=== PATIENT | female | born 1995 | race Caucasian/White ===

== ENCOUNTER 2019-12-17 06:55 | Inpatient (IN) ==
[2019-12-17] MEDS ORDERED: ceFAZolin 2000MG 2,000 MG/15 ML SYR IV ONE (09:05)
--- NOTE | 2019-12-17 09:07 | Obstetrical Progress Note ---
Date of Service December 17, 2019 Assessment & Plan Admission and Anticipated Discharge Date Admission Date: December 17, 2019 Subjective met pt and spouse bedside sono: breech FHR; CAT1 will proceed with c/sec Results & Data ([facility]) Vital Signs (Past 12 Hours) Vital Signs Temp Pulse Pulse Resp BP BP 12/17/19 07:46 36.7 C 92 H 20 118/63 12/17/19 07:38 36.7 C 92 H 20 118/63 12/17/19 07:01 92 H 118/63
--- NOTE | 2019-12-17 09:07 | History & Physical Bridge Note ---
Date of Service December 17, 2019 History & Physical Bridge Note I have examined the patient, reviewed the History & Physical and in the interval since the performance of the History & Physical I have noted the following changes of clinical significance: no changes noted
[2019-12-17] MEDS ORDERED: CITRIC ACID/SODIUM CITRATE 15 ML UDC PO ONE (09:20)
[2019-12-17] MEDS ORDERED: LACTATED RINGER'S 250 ML IV ONE (09:28)
[2019-12-17] MEDS ORDERED: LACTATED RINGER'S 1,000 ML IV SCH ×2 (09:30→12:00)
[2019-12-17 09:34] LABS: Basophils # (auto) 0.03 K/uL (0-0.2); Basophils % (auto) 0.3 %; Eosinophils # (auto) 0.17 K/uL (0-0.5); Eosinophils % (auto) 1.5 %; Hematocrit (blood only) 35.1 % (37-47); Hemoglobin 11.8 g/dL (12.0-16.0); Immature Granulocytes # (auto) 0.05 K/uL (0.00-0.02); Immature Granulocytes % (auto) 0.5 %; Lymphocytes # (auto) 1.93 K/uL (1.2-3.4); Lymphocytes % (auto) 17.5 %; Mean Corpuscular Hemoglobin 31.2 pg (25-34); Mean Corpuscular Volume 92.9 fL (80-100); Mean Platelet Volume 11.9 fL (7.4-10.4); Monocytes # (auto) 0.73 K/uL (0.11-0.59); Monocytes % (auto) 6.6 %; Neutrophils # (auto) 8.15 K/uL (1.4-6.5); Neutrophils % (auto) 73.6 %; Platelet Count 191 K/uL (130-400); RDW Coefficient of Variation 14.8 % (11.5-14.5); RDW Standard Deviation 49.6 fL (36.4-46.3); Red Blood Count 3.78 M/uL (4.2-5.4); White Blood Count 11.06 K/uL (4.8-10.8)
[2019-12-17] MEDS ORDERED: LACTATED RINGER'S 1,000 ML IV ONE (09:36)
[2019-12-17 09:40] LABS: Mean Corpuscular Hgb Conc 33.6 g/dL (32-36)
[2019-12-17] MEDS ORDERED: MoRPHine SULFATE PF 1 MG/ML 10 ML AMP/VIAL ONE (09:58)
--- NOTE | 2019-12-17 10:07 | Anesthesiology Consultation ---
Date of Service December 17, 2019 Assessment & Plan Chart Review Chart Review: Acceptable Risk for Surgery Consults Requested none History Surgery Operation Date: 12/17/19 08:50 Proposed Procedures p Section in LD - Kael Galeas MD Height/Weight Height: 5 ft 7 in Weight: 73.21 kg Allergies Allergy/AdvReac Type Severity Reaction Status Date / Time No Known Allergies Allergy Verified 12/07/19 13:36 Medications Home Medications Medication Instructions Recorded Confirmed Last Taken ferrous sulfate 325 mg PO QAM 12/07/19 12/17/19 12/15/19 22:00 [id number] 1 tab PO QAM 12/07/19 12/17/19 12/15/19 22:00 [] Past Medical History Medical History No known health problems Past Surgical History Surgical History No history of previous surgery Social History Smoking Status: Former smoker Do You Dip or Chew Tobacco: No Smoking End Date: quit beginning of 10-05-19 Hx Alcohol Use: No Hx Substance Use: No substance use type: does not use Physical Exam Vital Signs Last Vital Signs Temp 36.9 C 12/17/19 09:57 Pulse 109 H 12/17/19 09:49 Resp 20 12/17/19 09:57 BP 124/85 12/17/19 09:49 Testing Laboratory Results 12/17/19 07:10 Blood Type O Positive 12/17/19 07:10 Antibody Screen NEGATIVE 12/17/19 07:10
[2019-12-17] MEDS ORDERED: NALOXONE HCL 1 MG in SODIUM CHLORIDE 0.9% 1000ML 1,000 ML IV PRN (10:09)
[2019-12-17] MEDS ORDERED: MoRPHine SULFATE PF 1 MG/ML 10 ML AMP/VIAL INT SPINAL ONE (10:09)
[2019-12-17] MEDS ORDERED: NALOXONE HCL 0.4 MG/1 ML VIAL/CARP IV PRN (10:09)
[2019-12-17] MEDS ORDERED: METOCLOPRAMIDE HCL 10 MG in SODIUM CHLORIDE 0.9% 50 ML IV PRN (10:09)
[2019-12-17] MEDS ORDERED: diphenhydrAMINE 50 MG/ML VIAL IV PRN (10:09)
[2019-12-17] MEDS ORDERED: LACTATED RINGER'S 500 ML IV PRN (10:09)
[2019-12-17] MEDS ORDERED: PROMETHAZINE HCL 25 MG in SODIUM CHLORIDE 0.9% 50 ML IV PRN (10:09)
[2019-12-17] MEDS ORDERED: NALOXONE HCL 0.08 MG in SYRINGE 1.8 ML IV PRN (10:09)
[2019-12-17] MEDS ORDERED: MoRPHine SULFATE 2 MG/ML CARP IV PRN (10:09)
[2019-12-17] MEDS ORDERED: ePHEDrine sulfate 50 MG/ML AMP IV PRN (10:09)
[2019-12-17] MEDS ORDERED: HYDROmorphone INJ 0.5 MG/0.5 ML SYR IV PRN (10:09)
[2019-12-17] MEDS ORDERED: ONDANSETRON INJ 2 MG/ML 2 ML VIAL IV PRN (10:09)
[2019-12-17] MEDS ORDERED: SODIUM CHLORIDE 0.9% 1000ML 1,000 ML IV SCH (10:15)
[2019-12-17] MEDS ORDERED: DC INTRASPINAL MORPHINE SCH (10:15)
[2019-12-17] MEDS ORDERED: NO NARCOTICS OR SEDATIVES SCH (10:15)
[2019-12-17] MEDS ORDERED: OXYTOCIN 10 UNITS/ML VIAL ONE (10:54)
[2019-12-17] MEDS ORDERED: METHYLERGONOVINE MALEATE 0.2 MG/ML AMP ONE (11:04)
[2019-12-17] MEDS ORDERED: PHENYLEPHRINE 100MCG/ML 5ML SYR ONE (11:04)
[2019-12-17] MEDS ORDERED: ePHEDrine sulfate 50 MG/ML AMP ONE (11:10)
[2019-12-17] MEDS ORDERED: miSOPROStoL 200 MCG TAB ONE (11:38)
[2019-12-17] MEDS ORDERED: MAGNESIUM HYDROXIDE SUSP 30 ML UDC PO PRN (11:56)
[2019-12-17] MEDS ORDERED: DIPHTHERIA/TETANUS/PERTUSSIS 0.5 ML SYR/VIAL IM ONE (11:56)
[2019-12-17] MEDS ORDERED: HYDROCORTISONE ACETATE 25 MG SUPP PR PRN (11:56)
[2019-12-17] MEDS ORDERED: BENZOCAINE 20% AER SPR 82.5 GM CAN EXT PRN (11:56)
[2019-12-17] MEDS ORDERED: SENNA 8.6 MG TAB PO PRN (11:56)
[2019-12-17] MEDS ORDERED: SUPERCREAM 0.870% 15 GM JAR EXT PRN (11:56)
--- NOTE | 2019-12-17 11:56 | Post Operative Brief Note ---
Immediate Post Op Note v1 Date of Surgery December 17, 2019 Pre & Post Diagnosis Operation Date: 12/17/19 08:50 Pre-Op Diagnosis: Term intrauterine . Breech presentation. Post-Op Diagnosis: same I identified the patient and participated in the time-out.: Yes Procedure Operation Date: 12/17/19 08:50 Actual Procedures p Low transverse section with of live female child at 1050 - Kael Galeas MD Surgeon Kael Galeas MD [employer] cory montoya Estimated Blood Loss 600 Findings Consistent with Post-Op Diagnosis Drains Secobar Catheter
--- NOTE | 2019-12-17 12:20 | Operative Report (OR) ---
DATE OF OPERATION: 12/17/2019 INDICATION FOR SURGERY: This is a 24-year-old G1, P0, at term with biju breech presentation. PREOPERATIVE DIAGNOSES: 1. at term. 2. Biju breech presentation. 3. The patient declined external version. POSTOPERATIVE DIAGNOSES: 1. at term. 2. Biju breech presentation. 3. The patient declined external version. PROCEDURE: Primary section. SURGEON: Kael Galeas MD. ANESTHESIA: Spinal. ATTENDING FOR ANESTHESIA: Curry Chavarria MD. RACE RELATIONS ADVISER FOR SURGERY: TODD Estrada. ESTIMATED BLOOD LOSS: 600 mL. INTRAVENOUS FLUIDS: 1600 mL. URINE OUTPUT: 200 mL of clear urine at the end of the procedure. FINDINGS: Live infant in biju breech presentation. Uterus, ovaries and adnexas otherwise appeared grossly normal. COMPLICATIONS: None. DRAINS: Escobar catheter. PATHOLOGY: Placenta. DESCRIPTION OF PROCEDURE: The patient was taken to the operating room where she was prepped and draped in normal sterile fashion. Timeout was called. A Pfannenstiel incision was made with a scalpel and carried down to the fascia. Fascia was incised in the midline and extended laterally on both sides. Fascia was sharply dissected off the rectus abdominus muscle. Peritoneum was identified and entered sharply. Once inside the abdomen, findings were as dictated above. An Joseph retractor was placed for retraction. Vesicouterine peritoneum was sharply dissected off the lower segment of the uterus. A low transverse incision was made in the uterus with a scalpel and extended laterally on both sides. Infant was delivered using breech maneuvers. Buttocks was delivered first followed by the legs, torso, arms, and the infant's head. Cord was clamped and cut after 30 seconds and handed over to the pediatric team. Details of the 's information is in the pediatric record. Cord blood and cord gas were obtained. Placenta was manually removed. Uterus was exteriorized and cleared of all clots and debris. Uterus was closed in 2 layers using Vicryl stitch. There was good hemostasis post-closure. Copious amount of irrigation was used to irrigate the abdomen. The uterus was returned into the abdominal cavity. The Joseph retractor at this time was removed. Once again, hemostasis was confirmed. The peritoneum was approximated using plain suture. Rectus abdominus muscle was approximated using plain suture as well. Loose [id number] was used to approximate the rectus abdominus muscle. Fascia was closed in a running fashion using Vicryl stitch. SubQ was approximated together using plain suture. Skin was closed with 4-0 Monocryl. All instruments were removed from the abdomen and accounted for x2 including sponges, needles and retractors. Baby and mother are doing well in recovery. I attest to the content of the Intraoperative Record and any orders documented therein. Any exception s are noted below.
[2019-12-17] MEDS: MEPERIDINE HCL 25 MG/ML CARP/VIAL IV PRN ×2 (12:30→12:46)
[2019-12-17] MEDS: OXYTOCIN 20 UNITS in LACTATED RINGER'S 1,000 ML IV SCH ×2 (12:32→20:49)
--- NOTE | 2019-12-17 12:48 | Anesthesiology Progress Note ---
Date of Service December 17, 2019 Anesthesia Post Procedure Vital Signs Vital Signs: Temp Pulse Pulse Resp BP BP Pulse Ox 12/17/19 12:46 104 H 141/69 H 100 12/17/19 12:41 96 H 100 12/17/19 12:36 97 H 20 129/65 100 12/17/19 12:31 85 100 12/17/19 12:26 91 H 20 120/58 L 100 12/17/19 12:21 91 H 100 12/17/19 12:16 93 H 20 121/65 100 12/17/19 12:11 89 100 12/17/19 12:07 88 126/60 12/17/19 12:06 88 20 100 12/17/19 12:01 96 H 100 12/17/19 11:56 79 20 124/83 100 12/17/19 11:51 104 H 100 12/17/19 11:46 36.4 C L 73 20 118/75 100 12/17/19 09:57 36.9 C 20 12/17/19 09:49 109 H 124/85 12/17/19 07:46 36.7 C 92 H 20 118/63 12/17/19 07:38 36.7 C 92 H 20 118/63 12/17/19 07:01 92 H 118/63 Pain Intensity Lower Abdomen: Pain Intensity: 5 Transfer of Care Handoff Completed per policy Notes Mental Status: alert / awake / arousable and participated in evaluation Patient Amnestic to Procedure: Yes Nausea / Vomiting: adequately controlled Pain: adequately controlled Airway Patency, RR, SpO2: stable & adequate BP & HR: stable & adequate Hydration State: stable & adequate Neuraxial Anesthesia: was administered and sensory block is resolving Anesthetic Complications: no major complications apparent
[2019-12-17] MEDS: KETOROLAC 30 MG/ML VIAL IV PRN (18:35)
[2019-12-17] MEDS: SIMETHICONE 80 MG CHEW PO SCH ×3 (18:36→20:47)
[2019-12-17] MEDS ORDERED: NALBUPHINE IV SCH (20:00)
[2019-12-17] MEDS: DOCUSATE SODIUM 100 MG CAP PO SCH (20:47)
[2019-12-18] MEDS: KETOROLAC 30 MG/ML VIAL IV PRN (03:34)
[2019-12-18] MEDS ORDERED: ONDANSETRON INJ 2 MG/ML 2 ML VIAL IV PRN (04:10)
[2019-12-18] MEDS ORDERED: ZOLPIDEM TARTRATE 5 MG TAB PO PRN (04:10)
[2019-12-18] MEDS ORDERED: diphenhydrAMINE 50 MG/ML VIAL IV PRN (04:10)
[2019-12-18] MEDS ORDERED: diphenhydrAMINE Capsule 25 MG CAP PO PRN (04:10)
[2019-12-18] MEDS ORDERED: PROMETHAZINE HCL 25 MG in SODIUM CHLORIDE 0.9% 50 ML IV PRN (04:10)
[2019-12-18] MEDS ORDERED: oxyCODONE/ACETAMINOPHEN 5mg/325mg TAB PO PRN (04:10)
[2019-12-18 07:02] LABS: Basophils # (auto) 0.02 K/uL (0-0.2); Basophils % (auto) 0.2 %; Eosinophils # (auto) 0.08 K/uL (0-0.5); Eosinophils % (auto) 0.7 %; Hematocrit (blood only) 25.8 % (37-47); Hemoglobin 8.5 g/dL (12.0-16.0); Immature Granulocytes # (auto) 0.03 K/uL (0.00-0.02); Immature Granulocytes % (auto) 0.2 %; Lymphocytes # (auto) 1.08 K/uL (1.2-3.4); Lymphocytes % (auto) 8.9 %; Mean Corpuscular Hemoglobin 30.7 pg (25-34); Mean Corpuscular Hgb Conc 32.9 g/dL (32-36); Mean Corpuscular Volume 93.1 fL (80-100); Mean Platelet Volume 11.3 fL (7.4-10.4); Monocytes # (auto) 0.78 K/uL (0.11-0.59); Monocytes % (auto) 6.4 %; Neutrophils # (auto) 10.16 K/uL (1.4-6.5); Neutrophils % (auto) 83.6 %; Platelet Count 132 K/uL (130-400); RDW Coefficient of Variation 14.9 % (11.5-14.5); RDW Standard Deviation 50.5 fL (36.4-46.3); Red Blood Count 2.77 M/uL (4.2-5.4); White Blood Count 12.15 K/uL (4.8-10.8)
[2019-12-18] MEDS: SIMETHICONE 80 MG CHEW PO SCH ×4 (08:04→20:10)
[2019-12-18] MEDS: FERROUS SULFATE 325 MG TAB PO SCH (08:04)
[2019-12-18] MEDS: DOCUSATE SODIUM 100 MG CAP PO SCH ×2 (08:04→20:10)
[2019-12-18] MEDS: PRENATAL VITAMIN 1 TAB PO SCH (08:05)
[2019-12-18] MEDS: IBUPROFEN 600 MG TAB PO PRN ×3 (09:20→20:08)
[2019-12-18] MEDS ORDERED: ACETAMINOPHEN 500 MG TAB PO PRN (09:23)
--- NOTE | 2019-12-18 10:23 | Surgery Progress Note ---
Date of Service December 18, 2019 Assessment & Plan Admission and Anticipated Discharge Date Admission Date: December 17, 2019 Subjective POD#1 doing well not passing gas yet ambulating well tolerating diet Physical Exam Constitutional: WD/WN, vitals as above comfortable incision c/d/i abdomen soft and non-tender no edema neg Robbie's will check repeat CBC in AM Results & Data ([facility]) Vital Signs (Past 12 Hours) Vital Signs Temp Pulse Resp BP Pulse Ox 12/18/19 07:45 36.8 C 103 H 16 113/71 12/18/19 04:30 36.8 C 85 16 106/67 98 12/18/19 04:10 16 98 12/18/19 03:10 16 98 12/18/19 01:10 16 95 12/18/19 00:10 16 96 12/17/19 23:15 36.8 C 77 17 104/68 98 12/17/19 23:10 14 99 Laboratory Results 12/17/19 12/17/19 12/18/19 07:10 07:10 06:17 WBC 11.06 H 12.15 H RBC 3.78 L 2.77 L Hgb 11.8 L 8.5 L D Hct 35.1 L 25.8 L MCV 92.9 93.1 MCH 31.2 30.7 MCHC 33.6 32.9 RDW Std Deviation 49.6 H 50.5 H RDW Coeff of Judah 14.8 H 14.9 H Plt Count 191 132 MPV 11.9 H 11.3 H Immature Gran % (Auto) 0.5 0.2 Neut % (Auto) 73.6 83.6 Lymph % (Auto) 17.5 8.9 [place] % (Auto) 6.6 6.4 Eos % (Auto) 1.5 0.7 Baso % (Auto) 0.3 0.2 Neut # (Auto) 8.15 H 10.16 H Lymph # (Auto) 1.93 1.08 L [place]ford # (Auto) 0.73 H 0.78 H Eos # (Auto) 0.17 0.08 Baso # (Auto) 0.03 0.02 Immature Gran # (Auto) 0.05 H 0.03 H Blood Type O Positive Antibody Screen NEGATIVE
[2019-12-18] MEDS ORDERED: bisacodyL 5 MG TABEC PO SCH (20:00)
[2019-12-19] MEDS: IBUPROFEN 600 MG TAB PO PRN ×4 (00:59→15:12)
[2019-12-19 06:21] LABS: Basophils # (auto) 0.02 K/uL (0-0.2); Basophils % (auto) 0.2 %; Eosinophils # (auto) 0.15 K/uL (0-0.5); Eosinophils % (auto) 1.3 %; Hematocrit (blood only) 25.9 % (37-47); Hemoglobin 8.6 g/dL (12.0-16.0); Immature Granulocytes # (auto) 0.04 K/uL (0.00-0.02); Immature Granulocytes % (auto) 0.4 %; Lymphocytes % (auto) 15.1 %; Mean Corpuscular Hemoglobin 31.2 pg (25-34); Mean Corpuscular Hgb Conc 33.2 g/dL (32-36); Mean Corpuscular Volume 93.8 fL (80-100); Mean Platelet Volume 10.4 fL (7.4-10.4); Monocytes # (auto) 0.65 K/uL (0.11-0.59); Monocytes % (auto) 5.8 %; Neutrophils # (auto) 8.72 K/uL (1.4-6.5); Neutrophils % (auto) 77.2 %; Platelet Count 165 K/uL (130-400); RDW Coefficient of Variation 15.3 % (11.5-14.5); RDW Standard Deviation 51.8 fL (36.4-46.3); Red Blood Count 2.76 M/uL (4.2-5.4); White Blood Count 11.28 K/uL (4.8-10.8)
[2019-12-19] MEDS: FERROUS SULFATE 325 MG TAB PO SCH (08:04)
[2019-12-19] MEDS: DOCUSATE SODIUM 100 MG CAP PO SCH (08:04)
[2019-12-19] MEDS: SIMETHICONE 80 MG CHEW PO SCH ×2 (08:04→13:56)
[2019-12-19] MEDS: PRENATAL VITAMIN 1 TAB PO SCH (08:04)
--- NOTE | 2019-12-19 10:28 | Obstetrical Progress Note ---
Date of Service December 19, 2019 Assessment & Plan (1) delivery delivered: POD #2 pt doing well NO COMPLAINTS WISHES TOE DISCHARGED HOME Results & Data ([facility]) Vital Signs (Past 12 Hours) Vital Signs Temp Pulse Resp BP 12/18/19 23:55 37.6 C H 81 16 100/62
[2019-12-19] MEDS ORDERED: bisacodyL 10 MG SUPP PR PRN (11:56)
== END 2019-12-19 15:15 | disposition home or self-care (01) | DRG 788 ==
LOC: 4S1 06:55 → EDSTATUS 08:50 → 4S2 15:06